=== PATIENT | male | born 2000 | race Two or more races ===

== ENCOUNTER 2023-10-15 11:15 | Emergency (ER) | payer OTHER ==
[~2023-10-15] VITALS: Ht 182.9 cm; Wt 68.0 kg
[2023-10-15 11:30] VITALS: BP 131/73; TEMP 98; O2SAT 98
[2023-10-15] MEDS ORDERED: CARB15DR12 EACH EAR (12:04)
== END 2023-10-15 13:05 | disposition home or self-care (01) ==
LOC: ER 11:26
DX: H61.23 Impacted cerumen, bilateral (principal)